=== PATIENT | male | born 1985 | race Caucasian/White ===

== ENCOUNTER 2020-07-20 21:06 | Emergency (ER) | payer BC ==
[~2020-07-20] VITALS: Ht 180.3 cm; Wt 86.2 kg
--- NOTE | 2020-07-20 21:20 | NUR ---
Pt walked in, Dr. Blandon at bedside for MSE.
[2020-07-20] MEDS ORDERED: CEFD300C3 PO (21:41)
[2020-07-20] MEDS ORDERED: CEFTRIAXONE 1 G VIAL IM ONE (21:45)
[2020-07-20] MEDS ORDERED: CEFTRIAXONE 1 G VIAL ONE (21:55)
--- NOTE | 2020-07-20 22:26 | NUR ---
Patient discharged to home in stable condition. Written and verbal after care instructions given. Patient verbalizes understanding of instructions. Stressed follow up or return to ER for worsening s/s. Accompanied by partner. No c/o pain or discmfort on right eye laceration. Steady gait.
[2020-07-20 22:27] VITALS: BP 116/90
== END 2020-07-20 22:28 | disposition home or self-care (01) ==
LOC: ER 21:11
DX: S01.111A Laceration without foreign body of right eyelid and periocular area, initial encounter (principal); W54.0XXA Bitten by dog, initial encounter; Y92.89 Other specified places as the place of occurrence of the external cause; Z88.0 Allergy status to penicillin
CPT/HCPCS: 12011; 96372; 99283; J0696; J3490; A4663